=== PATIENT | male | born 1975 | race Two or more races ===

== ENCOUNTER 2020-10-08 22:06 | Emergency (ER) | payer MEDICAID ==
[~2020-10-08] VITALS: Ht 170.2 cm; Wt 81.6 kg
[2020-10-08 22:33] VITALS: BP 116/63
--- NOTE | 2020-10-08 22:35 | NUR ---
ED Nurse Note: pt presents to ED c/o fever and abdominal "burning" x 3 days. pt states that his fever and body aches are worst at night, reporting a temporal temperature of 104 at home. pt states that he has been medicating with theraflu without much relief of symptoms. he states he had a negative antigen test yesterday and a nasopharyngeal swab done today that has not been resulted yet. pt denies any cough or SOB, denies loss of taste or smell, reports taking a 800 mg ibuprofen 30 minutes [employer] wich made him feel better.
[2020-10-08] MEDS ORDERED: Azithromycin 500 MG in NS 275 ML IVPB ONE (22:45)
[2020-10-08] MEDS ORDERED: cefTRIAXone 1 GM in NS 55 ML IVPB ONE (22:45)
[2020-10-08] MEDS ORDERED: Acetaminophen 500mg (ES) tab ORAL ONE (22:45)
[2020-10-08] MEDS ORDERED: dexAMETHasone 10mg/ml Inj IV ONE (22:45)
[2020-10-08 23:03] LABS: BASOPHILS % (AUTO) 1.9 % (0.0-2.0); HEMATOCRIT 38.5 % (42.0-52.0); HEMOGLOBIN 14.3 G/DL (14.2-18.0); LYMPHOCYTES % (AUTO) 8.7 % (20.0-45.0); MEAN CORPUSCULAR VOLUME 86 FL (80-99); MONOCYTES % (AUTO) 9.7 % (1.0-10.0); NEUTROPHILS % (AUTO) 79.8 % (45.0-75.0); PLATELET COUNT 127 K/UL (150-450); RED BLOOD COUNT 4.48 M/UL (4.70-6.10); RED CELL DISTRIBUTION WIDTH 12.2 % (11.6-14.8); WHITE BLOOD COUNT 7.6 K/UL (4.8-10.8)
--- NOTE | 2020-10-08 23:15 | NUR ---
ED Nurse Note: received report from BREANNA Mccoy patient currently in bed with no distress at this time. after repeat vitals, oral temp currently at 98.7. flu swab sent down
[2020-10-08 23:17] LABS: INR 1.1 (0.9-1.1)
--- NOTE | 2020-10-08 23:21 | Diagnostic Imaging Report ---
EXAM: XR Chest, 1 View CLINICAL HISTORY: INFECT TECHNIQUE: Frontal view of the chest. COMPARISON: No previous studies. FINDINGS: Lungs: The lungs are well aerated. No consolidative change. Pleural space: No pleural effusion. No pneumothorax. Heart: Heart is normal in size but Mediastinum: Unremarkable. Bones/joints: Ribs are grossly unremarkable. Gentle dextroscoliosis of the thoracic spine. IMPRESSION: No active disease.
[2020-10-08 23:23] LABS: ANION GAP 9 mmol/L (5-15); BLOOD UREA NITROGEN 16 mg/dL (7-18); CALCIUM 7.7 MG/DL (8.5-10.1); CARBON DIOXIDE 25 MMOL/L (21-32); CHLORIDE 98 MMOL/L (98-107); CREATININE 1.2 MG/DL (0.55-1.30); POTASSIUM 3.3 MMOL/L (3.5-5.1); SODIUM 132 MMOL/L (136-145)
[2020-10-08 23:39] LABS: ALANINE AMINOTRANSFERASE 30 U/L (12-78); ALBUMIN 3.5 G/DL (3.4-5.0); ALKALINE PHOSPHATASE 42 U/L (46-116); ASPARTATE AMINO TRANSFERASE 16 U/L (15-37); BILIRUBIN,TOTAL 0.5 MG/DL (0.2-1.0); CREATINE KINASE 94 U/L (26-308); FERRITIN 149 NG/ML (8-388); LACTATE DEHYDROGENASE 144 U/L (81-234); PHOSPHORUS 2.5 MG/DL (2.5-4.9)
[2020-10-08 23:43] VITALS: BP 107/80
--- NOTE | 2020-10-08 23:48 | Emergency Room Report ---
History of Present Illness General Chief Complaint: Fever Source: Patient Present Illness HPI 45-year-old male with no prior medical history presents with chief complaint of fevers and myalgias x3 days. Tmax 105. 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 He believes he's had exposure to COVID. He went to an urgent care a few days ago and got an antigen test for Covid which was negative. He had another fever today so represented to an urgent care and received "a few shots" that made him "feel much better", but he became concerned when his fever recurred again this evening. Last antipyretic taken was 3 hours prior to arrival, Motrin 800 mg p.o. x1. He complains of dry cough, nonbloody diarrhea, anorexia, fatigue and on and off fevers. Denies recent antibiotic use, hospitalization, headache, photophobia, rash, shortness of breath, chest pain, hemoptysis, or focal weakness The patient's symptoms were gradual onset, severity was moderate, duration since 3 days. Quality: Generally weak Past medical history: Denies Past surgical history: Denies Smoking: Denies Alcohol use: Occasional Drug use: Denies Review of systems: CONST: ++ fevers ++ chills, No night sweats PULMONARY: ++ dry cough, No shortness of breath CARDIAC: No chest pain, No palpitations GI: No vomiting, ++ diarrhea , No melena_or_BRBPR : No dysuria, No hematuria, No discharge NEURO: No new_focal_weakness_or_numbness, No confusion, No vision changes 14 point Review of Systems is otherwise negative except per HPI Physical Exam: GENERAL: Awake_alert_ nontoxic, no acute distress Spo2 95% on RA -normal EYES: Extraocular muscles are intact. Conjunctivae clear. Lids without swelling ENT: External nose and ear normal_in_appearance. Oropharynx clear. Head_atraumatic, Moist_oral_mucosa NECK: No JVD. No meningismus. No thyromegaly. Supple. Trachea midline. No nuchal rigidity RESP: Normal respiratory effort. Symmetric rise. No stridor. Clear_to_auscultation_No_rales_No_wheezes Speaks in full and complete sentences CARDIAC: Tachycardic and regular rhytm. No_significant pedal edema. ABDOMEN: Soft. Nondistended. Nontender_No_rebound_or_guarding. MSK: Normal muscle tone, without rigidity. Extremities without asymmetric deformity or swelling. SKIN: Warm and dry. No visible cyanosis or pallor. No petechiae NEUROLOGIC: Alert, oriented x3. Motor_and_sensation_grossly_intact. No truncal ataxia. Gait_normal Psych: Normal mood and affect, normal judgment and insight - COORDINATION OF CARE Case was discussed with: Patient Any labs and imaging that were ordered were interpreted as part of the medical decision making: Medical Decision Making/Plan: Differential diagnosis includes sepsis / severe sepsis , influenza, COVID 19, viral syndrome, UTI, pneumonia, gastroenteritis, among others. Vitals show low-grade fever and tachycardia. No hypoxia or signs of respiratory distress. No nuchal rigidity or petechiae. Patient abdomen is benign, no evidence of emergent abdominal condition. No murmur auscultated. No stigmata or endocarditis. Based on the patients presenting signs, symptoms, exam, and risk factors (living in an area endemic for a coronavirus outbreak = [place]), and is suspected of having COVID 19. Patient had swab performed this morning at urgent care. He will receive result tomorrow morning, therefore did not repeat it here in ED. Sepsis bundle initiated on arrival due to low grade fever and tachycardia. Blood cultures, lactate drawn. Influenza negative. Labs show normal CBC and lactate. CXR shows no acute disease/infiltrate. Lactate was not elevated, patient was not given 30 cc/kg IV fluids by bolus due to patient refusal. Empiric antibiotics were started. Fever and tachycardia resolved with tylenol and IV fluids. BCx are pending. Patient was informed that if his blood cultures return positive that he should report back to the ER for treatment. The patient was nontoxic with benign vital signs. They did not meet admission criteria and was stable for outpatient therapy, under the current guideline. The patient was instructed to be home quarantined, and appropriate precautions were given. The patient was educated and instructed to notify a healthcare professional if they develop difficulty breathing, chest pain, palpitations, fever or other concerning symptoms. These instructions were given to the patient in both verbal and written forms. The patient was given an opportunity to ask questions. The patient was discharged with written instructions for COVID-19, including strict ED return precautions. 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 COVID-19 Screening: PUI COVID-19 COVID-19 Testing Source: pt reports Nursing Documentation-PMH Past Medical History: No Stated History Physical Exam Vital Signs Date Time Temp Pulse Resp B/P (MAP) Pulse Ox O2 Delivery O2 Flow Rate FiO2 10/08/20 22:29 100.0 110 18 116/63 (80) 95 Room Air Sp02 EP Interpretation: reviewed, normal Medical Decision Making Diagnostic Impression: Primary Impression: Fever Additional Impressions: Suspected 2018-nCoV infection Diarrhea Viral syndrome EKG Diagnostic Results Troponin ordered: Yes When was troponin ordered?: Oct 08, 2020 JAVAD Scribe Text 12-lead EKG (interpreted by me) Time: 2245 Indication: Rhythm analysis Tracing visualized and Interpreted by me. Rhythm: Normal sinus rhythm Rate: 100 bpm QTc: 428 Morphology: No_significant_ST_elevations_or_depressions, No STEMI Impression: Normal_sinus_rhythm_without_significant_abnormality Isolated T wave inversion in lead III Rhythm Strip Diag. Results Rhythm Strip Time: 23:47 EP Interpretation: yes Rate: 84 Rhythm: NSR, no PVC's, no ectopy Chest X-Ray Diagnostic Results Chest X-Ray Diagnostic Results : PA Scribe Text Chest X-Ray: Views: [ 1 ] view(s) Indication: Fever Findings: Normal heart size. Mediastinum normal. No infiltrate. Impression: No acute disease The X-ray(s) were independently viewed and interpreted contemporaneously Electronically signed by Jewell plaza DO Reevaluation Time: 23:48 Last Vital Signs Date Time Temp Pulse Resp B/P (MAP) Pulse Ox O2 Delivery O2 Flow Rate FiO2 10/08/20 22:33 100.0 18 116/63 95 Room Air 10/08/20 22:33 110 Status: improved Disposition: HOME, SELF-CARE Admit Decision Time: 00:28 Condition: Stable Scripts Acetaminophen* (TYLENOL EXTRA STRENGTH*) 500 Mg Tablet 500 MG ORAL Q8H PRN for Prn Headache/Temp > 101, #30 TAB 0 Refills Prov: Jewell Falk D.O. 10/09/20 Ondansetron Odt* (ZOFRAN ODT*) 4 Mg Tab.rapdis 4 MG BC EVERY 8 HOURS, #10 TAB 0 Refills Prov: FalkRock garciaJewelllenard Buchanan 10/09/20 Azithromycin* (ZITHROMAX*) 250 Mg Tablet 250 MG ORAL DAILY, #6 TAB 0 Refills Take two tables once daily for 1 day, then one tablet once daily for 4 days. Prov: Jewell Falk D.O. 10/09/20 Referrals: NOT CHOSEN IPA/,REFERRING (PCP) Patient Instructions: Fever, Adult Additional Instructions: Instructions for patient/lead bi developer: Follow up with your physician in 1-2 days. Follow-up with your doctor sooner if your condition requires a more timely clinical reevaluation. Return to the emergency department immediately if you feel that your condition is worsening or if you have any new or concerning symptoms. Review your discharge instructions and take any prescriptions given as instructed. [facility] PROVIDES FREE OR LOW-COST HEALTH SERVICES TO PEOPLE WHO CAN SHOW PROOF THAT THEY LIVE IN [facility]. TO FIND MORE CLINICS PARTNERED WITH [facility] TO PROVIDE SERVICE, PLEASE CALL . Your evaluation suggests that you are suffering from a viral infection producing a viral syndrome. You can sign up for testing with [facility] at the following website as discussed [email or web address] Symptoms of a viral syndrome may include fever, sore throat, headache, body aches and pains, generalized weakness and fatigue, and runny nose. You do not show signs or symptoms suggestive of a serious or life threatening illness. This illness may be caused by a number of different viruses, including Influenza A or B or COVID-19. These viruses are highly contagious and spread rapidly from person to person via coughing and sneezing of the virus or by contaminated surface contact with nasal or other respiratory secretions. These viruses cause a similar combination of signs and symptoms which are typically much more severe than the common cold. Typically they begin with the rapid onset of fever, often high (over 102), body aches, fatigue, headache, and usually upper respiratory tract infections symptoms such as cough, runny nose, and sore throat. The illness typically lasts 7-10 days, with the fever and feelings of weakness and body aches usually lasting 3-5 days. Your own immune system fights off these infections. Only rarely do secondary bacterial infections occur (such as bacterial pneumonia) and can be serious. At this time your symptoms do not appear serious, however, there are limitations to online visits and if you are not improving you may need to be evaluated by a doctor in person and that doctor may need to do additional tests. INSTRUCTIONS: Illnesses such as yours typically resolve on their own with time however you must remember to stay hydrated and drink 2-3 times your normal fluid intake, as fever and your increased metabolism in fighting the infection uses more water. Fever control is important to help you feel better and to help prevent dehydration. Acetaminophen is an excellent choice for fever control and other symptoms (as long as you are not allergic to the medication). Rest is also important in helping your body fight this infection. Over the counter cough and decongestant medications are safe (as long as you dont have uncontrolled high blood pressure) and may help the cough and congestion slightly. As these viruses are highly contagious, good hand washing habits, and covering your cough and sneeze help prevent spread. Fever can be a sign of a serious infection and it is imperative that you go directly to an Emergency Department for serious symptoms such as weakness, confusion, significant shortness of breath, abdominal pain, or severe headache. Close follow up with a physician is important if you are not improving over the next few days or you experience worsening of your symptoms. Although it is impossible to know at this point if you have COVID-19 (the [place] virus), please quarantine yourself and anyone else that is residing with you for the longer of the following time periods: 14 days OR 3 days after the last of your symptoms has resolved CONTACT THE DOCTOR RIGHT AWAY if you develop worsening symptoms such as shortness of breath, chest pain, neck stiffness, confusion or any other new, worsening, or concerning symptoms. For emergencies contact 911 immediately. Jewell Falk D.O. Oct 08, 2020 23:48
--- NOTE | 2020-10-08 23:55 | NUR ---
ED Nurse Note: unable to get urine at this time. patient sound asleep.
[2020-10-09] MEDS ORDERED: ZITHROMAX250 MG ORAL (00:30)
[2020-10-09] MEDS ORDERED: TYLENOL EXTRA500 MG ORAL (00:30)
[2020-10-09] MEDS ORDERED: ONDANSETRON ODT4 MG BC (00:30)
[2020-10-09 00:45] VITALS: BP 115/82
--- NOTE | 2020-10-09 00:45 | NUR ---
ER DISCHARGE NOTE: Patient is cleared to be discharged per ERMD, pt is aox4, on room air, with stable vital signs. pt was given dc and prescription instructions, pt was able to verbalize understanding, pt id band and iv site removed without complications. pt is able to ambulate with steady gait. pt took all belongings.
[2020-10-09 01:10] LABS: APPEARANCE,URINE CLEAR; BILIRUBIN, URINE NEGATIVE (NEGATIVE); GLUCOSE, URINE (UA) NEGATIVE (NEGATIVE); LEUKOCYTE ESTERASE ,URINE NEGATIVE (NEGATIVE); NITRITE,URINE NEGATIVE (NEGATIVE); PH,URINE 6 (4.5-8.0); PROTEIN,URINE 2+ (NEGATIVE); UROBILINOGEN,URINE NORMAL MG/DL (0.0-1.0)
[2020-10-09 01:16] LABS: COLOR,URINE PALE YELLOW; KETONES,URINE 2+ (NEGATIVE)
== END 2020-10-09 00:45 | disposition home or self-care (01) ==
LOC: EMR 22:30
DX: R50.9 Fever, unspecified (principal); R19.7 Diarrhea, unspecified; B34.9 Viral infection, unspecified; M79.10 Myalgia, unspecified site; R00.0 Tachycardia, unspecified; M41.9 Scoliosis, unspecified
CPT/HCPCS: 36415; 71045; 80053; 81003; 82550; 82728; 83605; 83615; 83690; 83735; 83880; 84100; 84484; 85025; 85610; 85730; 86140; 86710; 87040; 87086; 93005; 96365; 96367; 96375; J0456; J0696; J2405; J7050; Z7502; 99284; J8499

== ENCOUNTER 2020-11-26 17:35 | Emergency (ER) | payer MEDICAID ==
[~2020-11-26] VITALS: Ht 170.2 cm; Wt 79.4 kg
[~2020-11-26 17:35] MED LIST: ONDANSETRON ODT4 MG BC; TYLENOL EXTRA500 MG ORAL; ZITHROMAX250 MG ORAL
[2020-11-26 17:51] VITALS: BP 124/81
--- NOTE | 2020-11-26 18:01 | NUR ---
ED Nurse Note: patient from home and walked in due to flu symptoms of coughing, bodyaches, chills, headache and fatigue since last week. Pt tested covid positive yesterday. Pt states history of pneumonia. AAO x4, ambulates with steady gait with non labored breathing.
--- NOTE | 2020-11-26 18:20 | Emergency Room Report ---
History of Present Illness General Chief Complaint: Flu Like Symptoms Source: Patient Present Illness HPI Patient is a 45-year-old male who presents for increased cough. Patient had recent positive coronavirus testing. Had onset of symptoms 7 days prior to arrival. Denies any prior history of hypertension or diabetes. Patient denies any vomiting or diarrhea. Had been taking vitamin D regularly. Sick contacts at home with similar symptoms. 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 COVID-19 Screening: Positive COVID-19 COVID-19 Testing Source: 11/23/20 Patient History Past Medical History: see triage record Reviewed Nursing Documentation: PMH: Agreed; PSxH: Agreed Nursing Documentation-PMH Past Medical History: No Stated History Review of Systems All Other Systems: negative except mentioned in HPI Physical Exam Vital Signs Date Time Temp Pulse Resp B/P (MAP) Pulse Ox O2 Delivery O2 Flow Rate FiO2 11/26/20 17:51 99.1 94 20 124/81 96 Room Air General Appearance: well appearing, no apparent distress, alert, GCS 15 Head: normocephalic, atraumatic ENT: hearing grossly normal, normal voice Neck: full range of motion, supple Respiratory: lungs clear, normal breath sounds, no respiratory distress, speaking full sentences Cardiovascular #1: normal inspection Gastrointestinal: normal inspection, non tender Musculoskeletal: no calf tenderness Neurologic: alert, motor strength/tone normal, professor of marketing III-XII nml as tested, oriented x3, normal gait Psychiatric: mood/affect normal Skin: no rash Medical Decision Making Diagnostic Impression: Primary Impression: Coronavirus infection ER Course Patient presents for cough. Differential diagnosis include is not limited to coronavirus infection, pneumonia, bronchitis among others. Patient has a benign exam and does not appear to require any laboratory testing at this time.Chest x- ray 1 view interpreted by me showed normal cardiac size without evident infiltrate. Patient was advised to continue taking vitamin D as well as baby aspirin. He was advised to discontinue aspirin if he began having stomach irritation. Patient was advised to return if he began having worsening shortness of breath. Or any other concerns. The patient is advised to follow up with primary care doctor in 1-2 days. Patient is advised to return if any worsening condition or if any changes in status that are concerning. This report is dictated with [email or web address] transport aide software which may occasionall y lead to discrepancies related to use of this software. Last Vital Signs Date Time Temp Pulse Resp B/P (MAP) Pulse Ox O2 Delivery O2 Flow Rate FiO2 11/26/20 18:01 94 20 Room Air 11/26/20 17:51 99.1 124/81 (95) 96 Status: improved Disposition: HOME, SELF-CARE Condition: Stable Scripts Aspirin* (ASPIRIN*) 81 Mg Tab.chew 81 MG ORAL DAILY for Antiplatelet, #30 TAB Prov: Alessandro Norton MD 11/26/20 Alessandro Norton MD Nov 26, 2020 18:19
[2020-11-26] MEDS ORDERED: ASPIRIN81 MG ORAL (18:35)
--- NOTE | 2020-11-26 18:46 | Diagnostic Imaging Report ---
EXAM: XR Chest, 1 View CLINICAL HISTORY: COUGH TECHNIQUE: Frontal view of the chest. COMPARISON: 10/08/2020 FINDINGS: Lungs: Unremarkable. No consolidation. Pleural space: Unremarkable. No pneumothorax. Heart: Unremarkable. No cardiomegaly. Mediastinum: Unremarkable. Bones/joints: No acute abnormality IMPRESSION: 1. No acute cardiopulmonary disease. 2. If there is continued concern consider frontal and lateral chest radiographs or CT.
[2020-11-26 18:50] VITALS: BP 118/79
--- NOTE | 2020-11-26 18:50 | NUR ---
ER DISCHARGE NOTE: Patient is cleared to be discharged per ERMD, pt is aox4, on room air, with stable vital signs. pt was given dc and prescription instructions, pt was able to verbalize understanding, pt id band removed. pt is able to ambulate with steady gait. pt took all belongings.
== END 2020-11-26 18:50 | disposition home or self-care (01) ==
LOC: EMR 18:05
DX: U07.1 COVID-19 (principal)
CPT/HCPCS: 71045; Z7502; 99283